=== PATIENT | female | born 1995 | race Asian ===

== ENCOUNTER 2020-04-29 02:33 | Emergency (ER) | payer MEDICAID ==
[~2020-04-29] VITALS: Ht 167.6 cm; Wt 68.0 kg
--- NOTE | 2020-04-29 03:00 | NUR ---
ED Nurse Note: Recieved pt walk in from home with c/o abdominal pain for past 3 months intermittently and continuous for past 3 days, pain now at 6/10 but reaches 10/10 at times, pt has hx of fibroids and states she needed surgery, pt is sao tomean speaking and has family member at bedside for translation, pt denies fevers, diarrhea, emesis, or any other discomforts, pt also states tylenol has been effective for pain and does nto want pain meds at this time, pt gowned, urine collected and sent, at bedside, will resume care as ordered with close, continuous monitoring.
--- NOTE | 2020-04-29 03:11 | Emergency Room Report ---
History of Present Illness General Chief Complaint: Abdominal Pain Source: Patient, Friend Present Illness HPI Patient presents with 3 months of intermittent lower abdominal pain. It is worse for the last 3 days. Patient denies any fevers. She has taken Tylenol which helps somewhat with the pain. She rates the pain 5/10 at this time. Radiates towards her back. She denies dysuria. There is no change in bowel habits. Last menstruation was the first week of April and normal for her. Mother had a history of fibroids and needed surgery. Patient denies exposure to Covid positive contacts. No sore throat, chest pain, palpitations, nausea, vomiting, shortness of breath, joint pain, rashes, depression, anxiety, visual changes, dizziness. She has occasional headaches not related to this pain. She denies headache at this time. 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[employer] - [place]ino speaking Last Menstrual Period: 04/10/19 Reviewed Nursing Documentation: PMH: Agreed; PSxH: Agreed Nursing Documentation-PMH Past Medical History: No Stated History Review of Systems All Other Systems: negative except mentioned in HPI Physical Exam Vital Signs Date Time Temp Pulse Resp B/P (MAP) Pulse Ox O2 Delivery O2 Flow Rate FiO2 04/29/20 02:34 98.1 82 20 130/74 (92) 98 Room Air Sp02 EP Interpretation: reviewed, normal General Appearance: well appearing, no apparent distress, GCS 15 Head: normocephalic Eyes: bilateral eye normal inspection, bilateral eye PERRL, bilateral eye EOMI ENT: other - Wearing a mask Neck: supple Respiratory: lungs clear, normal breath sounds Cardiovascular #1: regular rate, rhythm Cardiovascular #2: 2+ radial (R) Gastrointestinal: normal inspection, normal bowel sounds, no mass, non- distended, no guarding, no rebound, tenderness - Suprapubic Genitourinary: no CVA tenderness Musculoskeletal: back normal, normal range of motion, gait/station normal Neurologic: alert, oriented x3, grossly normal Psychiatric: mood/affect normal Medical Decision Making Diagnostic Impression: Primary Impression: Pelvic pain ER Course Patient presents with lower abdominal pain intermittently for 3 months of heavy periods worsened 3 days. Differential includes urine cyst, fibroids, ectopic , urinary tract infection, appendicitis, torsion amongst others. Patient evaluated with labs and ultrasound. Patient treated with IV hydration and analgesia. Labs unremarkable. Ultrasound normal. Discussed results with patient. Discussed the need to follow-up with an OFFICE SUPPORT ASSISTANT. Unable to determine etiology of this pain. Several possibilities explained to patient. Patient stable for outpatient observation and treatment. Laboratory Tests Test 04/29/20 02:50 04/29/20 03:15 Urine Color Pale yellow Urine Appearance Clear Urine pH 8 (4.5-8.0) Urine Specific [place] 1.010 (1.005-1.035) Urine Protein Negative (NEGATIVE) Urine Glucose (UA) Negative (NEGATIVE) Urine Ketones Negative (NEGATIVE) Urine Blood 4+ (NEGATIVE) H Urine Nitrite Negative (NEGATIVE) Urine Bilirubin Negative (NEGATIVE) Urine Urobilinogen Normal MG/DL (0.0-1.0) Urine Leukocyte Esterase 1+ (NEGATIVE) H Urine RBC 10-15 /HPF (0 - 2) H Urine WBC 0-2 /HPF (0 - 2) Urine Squamous Epithelial Cells Few /LPF (NONE/OCC) Urine Bacteria Few /HPF (NONE) Urine HCG, Qualitative Negative (NEGATIVE) White Blood Count 6.0 K/UL (4.8-10.8) Red Blood Count 4.77 M/UL (4.20-5.40) Hemoglobin 12.6 G/DL (12.0-16.0) Hematocrit 39.2 % (37.0-47.0) Mean Corpuscular Volume 82 FL (80-99) Mean Corpuscular Hemoglobin 26.5 PG (27.0-31.0) L Mean Corpuscular Hemoglobin Concent 32.3 G/DL (32.0-36.0) Red Cell Distribution Width 13.5 % (11.6-14.8) Platelet Count 202 K/UL (150-450) Mean Platelet Volume 10.9 FL (6.5-10.1) H Neutrophils (%) (Auto) 43.1 % (45.0-75.0) L Lymphocytes (%) (Auto) 44.2 % (20.0-45.0) Monocytes (%) (Auto) 8.3 % (1.0-10.0) Eosinophils (%) (Auto) 2.3 % (0.0-3.0) Basophils (%) (Auto) 2.2 % (0.0-2.0) H Prothrombin Time 11.3 SEC (9.30-11.50) Prothrombin Time INR 1.0 (0.9-1.1) Activated Partial Thromboplast Time 27 SEC (23-33) Sodium Level 140 MMOL/L (136-145) Potassium Level 3.9 MMOL/L (3.5-5.1) Chloride Level 106 MMOL/L (98-107) Carbon Dioxide Level 28 MMOL/L (21-32) Anion Gap 6 mmol/L (5-15) Blood Urea Nitrogen 10 mg/dL (7-18) Creatinine 0.7 MG/DL (0.55-1.30) Estimated Glomerular Filtration Rate > 60 mL/min (>60) Glucose Level 99 MG/DL (74-106) Calcium Level 8.8 MG/DL (8.5-10.1) Total Bilirubin 0.1 MG/DL (0.2-1.0) L Aspartate Amino Transferase (AST) 11 U/L (15-37) L Alanine Aminotransferase (ALT) 9 U/L (12-78) L Alkaline Phosphatase 79 U/L (46-116) Total Protein 7.3 G/DL (6.4-8.2) Albumin 3.8 G/DL (3.4-5.0) Globulin 3.5 g/dL Albumin/Globulin Ratio 1.1 (1.0-2.7) Lipase 149 U/L (73-393) Last Vital Signs Date Time Temp Pulse Resp B/P (MAP) Pulse Ox O2 Delivery O2 Flow Rate FiO2 04/29/20 05:45 98.4 73 20 124/70 98 Room Air Status: improved Disposition: HOME, SELF-CARE Condition: Improved Scripts Ibuprofen* (MOTRIN*) 600 Mg Tablet 600 MG ORAL Q6H PRN for FOR PAIN, #20 TAB 0 Refills Prov: Calvin Ambriz MD 04/29/20 Referrals: NOT CHOSEN IPA/,REFERRING (PCP) Calvin Ambriz MD Apr 29, 2020 03:11
[2020-04-29 03:26] LABS: BASOPHILS % (AUTO) 2.2 % (0.0-2.0); EOSINOPHILS % (AUTO) 2.3 % (0.0-3.0); HEMATOCRIT 39.2 % (37.0-47.0); HEMOGLOBIN 12.6 G/DL (12.0-16.0); LYMPHOCYTES % (AUTO) 44.2 % (20.0-45.0); MEAN CORPUSCULAR VOLUME 82 FL (80-99); MONOCYTES % (AUTO) 8.3 % (1.0-10.0); NEUTROPHILS % (AUTO) 43.1 % (45.0-75.0); PLATELET COUNT 202 K/UL (150-450); RED BLOOD COUNT 4.77 M/UL (4.20-5.40); RED CELL DISTRIBUTION WIDTH 13.5 % (11.6-14.8)
[2020-04-29 03:27] LABS: APPEARANCE,URINE CLEAR; BILIRUBIN, URINE NEGATIVE (NEGATIVE); COLOR,URINE PALE YELLOW; GLUCOSE, URINE (UA) NEGATIVE (NEGATIVE); KETONES,URINE NEGATIVE (NEGATIVE); LEUKOCYTE ESTERASE ,URINE 1+ (NEGATIVE); NITRITE,URINE NEGATIVE (NEGATIVE); PH,URINE 8 (4.5-8.0); PROTEIN,URINE NEGATIVE (NEGATIVE); UROBILINOGEN,URINE NORMAL MG/DL (0.0-1.0)
[2020-04-29 03:40] LABS: ANION GAP 6 mmol/L (5-15); BLOOD UREA NITROGEN 10 mg/dL (7-18); CALCIUM 8.8 MG/DL (8.5-10.1); CARBON DIOXIDE 28 MMOL/L (21-32); CHLORIDE 106 MMOL/L (98-107); CREATININE 0.7 MG/DL (0.55-1.30); POTASSIUM 3.9 MMOL/L (3.5-5.1); SODIUM 140 MMOL/L (136-145)
[2020-04-29 03:44] LABS: ALANINE AMINOTRANSFERASE 9 U/L (12-78); ALBUMIN 3.8 G/DL (3.4-5.0); ALBUMIN/GLOBULIN RATIO 1.1 (1.0-2.7); ALKALINE PHOSPHATASE 79 U/L (46-116); ASPARTATE AMINO TRANSFERASE 11 U/L (15-37); BILIRUBIN,TOTAL 0.1 MG/DL (0.2-1.0)
--- NOTE | 2020-04-29 04:30 | NUR ---
ED Nurse Note: U/S tech at bedside performing ultrasound, pt tolerating well, iV site patent and fluids completed, will continue to monitor for any acute changes or increased distress.
[2020-04-29 05:00] VITALS: BP 124/70
[2020-04-29] MEDS ORDERED: IBUPROFEN600 M1 ORAL (05:06)
--- NOTE | 2020-04-29 05:40 | NUR ---
ER DISCHARGE NOTE: Patient is cleared to be discharged per ERMD, pt is aox4, on room air, with stable vital signs. pt was given dc and prescription instructions, pt was able to verbalize understanding, pt id band and iv site removed without complications. pt is able to ambulate with steady gait. pt took all belongings.
[2020-04-29 05:45] VITALS: BP 124/70
--- NOTE | 2020-04-29 09:10 | Diagnostic Imaging Report ---
Indication: Pelvic pain. Patient is reportedly not Technique: Transabdominal pelvic ultrasound was performed. Findings: Limited evaluation as only transabdominal examination was performed. Partially imaged bladder grossly unremarkable. Uterus and endometrium unremarkable in appearance. Endometrium normal in thickness. No focal myometrial or endometrial abnormality is appreciated. Small follicles noted in the bilateral ovaries. No adnexal masses are demonstrated. Color Doppler flow is demonstrated in the bilateral ovaries. No free pelvic fluid is demonstrated. IMPRESSION: Limited evaluation as endovaginal scan was not performed. Unremarkable transabdominal pelvic ultrasound.
== END 2020-04-29 05:45 | disposition home or self-care (01) ==
LOC: EMR 02:50
DX: R10.2 Pelvic and perineal pain (principal)
CPT/HCPCS: 36415; 76856; 80053; 81003; 81025; 83690; 85025; 85610; 85730; 96360; 96361; Z7502; 99284